=== PATIENT | male | born 1975 | race Caucasian/White ===

== ENCOUNTER 2017-07-19 10:16 | Day surgery (SDC) | payer OTHER ==
[~2017-07-19] VITALS: Ht 195.6 cm; Wt 109.0 kg
[~2017-07-19 10:16] MED LIST: ALLERGY RELIEF10 M5 PO; CITALOPRAM HBR20 MG PO; FLOMAX0.4 MG PO; PRILOSEC OTC20 MG PO; WELLBUTRIN SR200 MG PO
== END 2017-07-19 16:50 | disposition home or self-care (01) ==
LOC: CATH 10:16
DX: R07.9 Chest pain, unspecified (principal); R06.02 Shortness of breath; R00.2 Palpitations; E78.5 Hyperlipidemia, unspecified; Z82.49 Family history of ischemic heart disease and other diseases of the circulatory system; F17.210 Nicotine dependence, cigarettes, uncomplicated
CPT/HCPCS: C1769; C1887; J1644; J2250; J3010; J7040